=== PATIENT | male | born 1985 | race Caucasian/White ===

== ENCOUNTER 2017-04-30 11:37 | Inpatient (IN) | payer BC ==
[~2017-04-30] VITALS: Ht 180.3 cm; Wt 106.7 kg
--- NOTE | 2017-04-30 11:59 | PD ---
HPI Chief Complaint: suicidal ideation Time Seen by Provider: 11:53 Travel History International Travel<30 days: No Contact w/Intl Traveler<30days: No History of Present Illness HPI 31-year-old male brought in by law enforcement under [employer] act. Patient was placed under [employer] act by his physician Dr. Jefferson. According to the paperwork patient made statements to his primary care that he wanted to "kill himself". Patient apparently has long-standing history of depression, anxiety. His mother approximate 1 year ago. He reports progressive worsening of depression with suicidal ideation over the past year. He is makes statements to myself that he "no longer wants to live". His formalized plan is to shoot himself with a gun. According to the paperwork he also made comments that he "hears voices". He denies any medical complaints. He denies alcohol or illicit drug use. PFSH Past Medical History Narrative Medical Significant for depression, anxiety Social History Tobacco Use: No Allergies-Medications (Allergen,Severity, Reaction): Coded Allergies: No Known Allergies (Unverified , 04/30/17) Reported Meds & Prescriptions Reported Meds & Active Scripts Active Reported [Depression Med] Xanax (Alprazolam) 0.25 Mg Tab 0.25 Mg PO Q4H PRN Review of Systems Except as stated in HPI: all other systems reviewed are Neg General / Constitutional: No: Fever Eyes: No: Visual changes HENT: No: Headaches Cardiovascular: No: Chest Pain or Discomfort Respiratory: No: Shortness of Breath Gastrointestinal: No: Abdominal Pain Physical Exam Narrative GENERAL: Well-nourished, well-developed patient. SKIN: Focused skin assessment warm/dry. HEAD: Normocephalic. EYES: No scleral icterus. No injection or drainage. NECK: Supple, trachea midline. No JVD or lymphadenopathy. CARDIOVASCULAR: Regular rate and rhythm without murmurs, gallops, or rubs. RESPIRATORY: Breath sounds equal bilaterally. No accessory muscle use. GASTROINTESTINAL: Abdomen soft, non-tender, nondistended. MUSCULOSKELETAL: No cyanosis, or edema. BACK: Nontender without obvious deformity. No CVA tenderness. PSYCHIATRIC: No delusional thought processes. No hallucinations. Patient is tearful. Data Data Last Documented VS Vital Signs Date Time Temp Pulse Resp B/P Pulse Ox O2 Delivery O2 Flow Rate FiO2 04/30/17 12:02 98.6 76 19 124/76 96 Orders Complete Blood Count With Diff (04/30/17 11:59) Comprehensive Metabolic Panel (04/30/17 11:59) Psych Screen (04/30/17 11:59) Drug Screen, Random Urine (04/30/17 11:59) Labs Laboratory Tests Test 04/30/17 04/30/17 12:00 12:35 White Blood Count 8.2 TH/MM3 Red Blood Count 5.08 MIL/MM3 Hemoglobin 16.0 GM/DL Hematocrit 45.6 % Mean Corpuscular Volume 89.7 FL Mean Corpuscular Hemoglobin 31.5 PG Mean Corpuscular Hemoglobin 35.2 % Concent Red Cell Distribution Width 13.6 % Platelet Count 215 TH/MM3 Mean Platelet Volume 7.9 FL Neutrophils (%) (Auto) 72.9 % Lymphocytes (%) (Auto) 20.8 % Monocytes (%) (Auto) 5.1 % Eosinophils (%) (Auto) 0.6 % Basophils (%) (Auto) 0.6 % Neutrophils # (Auto) 6.0 TH/MM3 Lymphocytes # (Auto) 1.7 TH/MM3 Monocytes # (Auto) 0.4 TH/MM3 Eosinophils # (Auto) 0.0 TH/MM3 Basophils # (Auto) 0.0 TH/MM3 CBC Comment DIFF FINAL Differential Comment Sodium Level 139 MEQ/L Potassium Level 4.0 MEQ/L Chloride Level 104 MEQ/L Carbon Dioxide Level 29.3 MEQ/L Anion Gap 6 MEQ/L Blood Urea Nitrogen 15 MG/DL Creatinine 1.00 MG/DL Estimat Glomerular Filtration 87 ML/MIN Rate Random Glucose 117 MG/DL Calcium Level 9.2 MG/DL Total Bilirubin 0.5 MG/DL Aspartate Amino Transf 33 U/L (AST/SGOT) Alanine Aminotransferase 75 U/L (ALT/SGPT) Alkaline Phosphatase 64 U/L Total Protein 8.0 GM/DL Albumin 3.7 GM/DL Urine Opiates Screen NEG Urine Barbiturates Screen NEG Urine Amphetamines Screen NEG Urine Benzodiazepines Screen NEG Urine Cocaine Screen NEG Urine Cannabinoids Screen NEG MDM Medical Decision Making Medical Screen Exam Complete: Yes Emergency Medical Condition: Yes Differential Diagnosis Suicidal ideation, depression, anxiety Narrative Course 31-year-old male here under [employer] act for suicidal ideation. Patient has history of depression and anxiety. CBC unremarkable BMP unremarkable Tox screen negative Patient is medically cleared and pending psychiatric evaluation. Diagnosis Primary Impression: Suicidal ideation Scarlet Hanna Apr 30, 2017 11:59
[2017-04-30 12:02] VITALS: BP 124/76; PULSE 76; RESP 19; TEMP 98.6; O2SAT 96
[2017-04-30] MEDS ORDERED: ALPR.25 PO (12:15)
[2017-04-30] MEDS ORDERED: DEPRESSION MED (12:15)
[2017-04-30 12:46] LABS: BASOPHIL % 0.6 % (0.0-2.0); EOSINOPHIL % 0.6 % (0.0-4.0); HEMATOCRIT 45.6 % (39.0-51.0); HEMO FLAGS DIFF FINAL; LYMPH % 20.8 % (9.0-44.0); LYMPHOCYTE # 1.7 TH/MM3 (1.0-4.8); MEAN CELL VOLUME 89.7 FL (80.0-100.0); MEAN CORPUSCULAR HEMOGLOBIN 31.5 PG (27.0-34.0); MEAN CORPUSCULAR HGB CONC 35.2 % (32.0-36.0); MONO % 5.1 % (0.0-8.0); NEUT % 72.9 % (16.0-70.0); PLATELET COUNT 215 TH/MM3 (150-450); RED BLOOD COUNT 5.08 MIL/MM3 (4.50-5.90); RED CELL DISTRIBUTION WIDTH 13.6 % (11.6-17.2); WHITE BLOOD COUNT 8.2 TH/MM3 (4.0-11.0)
[2017-04-30 13:03] LABS: ANION GAP 6 MEQ/L (5-15); AST (GOT) 33 U/L (15-37); BICARBONATE 29.3 MEQ/L (21.0-32.0); BLOOD UREA NITROGEN 15 MG/DL (7-18); CHLORIDE 104 MEQ/L (98-107); GLOMERULAR FILTRATION RATE 87 ML/MIN (>89); SODIUM (NA) 139 MEQ/L (136-145)
[2017-04-30 13:07] LABS: ALKALINE PHOSPHATASE 64 U/L (45-117); ALT (GPT) 75 U/L (12-78); TOTAL BILIRUBIN ADULT 0.5 MG/DL (0.2-1.0)
[2017-04-30 13:07] LABS: AMPHETAMINE, URINE NEG (NEG); BARBITURATES, URINE NEG (NEG)
[2017-04-30 13:08] LABS: COCAINE, URINE NEG (NEG)
[2017-04-30 14:26] VITALS: BP 124/80; PULSE 68; RESP 18; O2SAT 99
[2017-04-30] MEDS ORDERED: ARIP1TAB5 PO (16:59)
[2017-04-30] MEDS ORDERED: BUPR100CR PO (17:03)
[2017-04-30] MEDS ORDERED: OXYC1TAB35 PO (17:07)
[2017-04-30 23:09] VITALS: BP 122/74; PULSE 60; RESP 18
[2017-05-01 02:23] VITALS: BP 131/68; PULSE 77; RESP 17; O2SAT 98
[2017-05-01 06:36] VITALS: BP 116/68; PULSE 63; RESP 19
[2017-05-01 10:39] VITALS: BP 119/71; PULSE 79; RESP 18; O2SAT 98
[2017-05-01] MEDS ORDERED: LORazepam 0.5 MG TAB PO PRN (10:45)
[2017-05-01] MEDS ORDERED: LORazepam 2 MG/ML VIAL IM PRN ×2 (10:45)
[2017-05-01] MEDS ORDERED: traZODone HCL 50 MG TAB PO PRN (10:45)
[2017-05-01] MEDS ORDERED: ALUMINUM/MAGNESIUM/SIMETH 30 ML CUP PO PRN ×2 (10:45→15:00)
[2017-05-01] MEDS ORDERED: ACETAMINOPHEN 325 MG TAB PO PRN ×2 (10:45→15:00)
[2017-05-01] MEDS ORDERED: MAGNESIUM HYDROXIDE SUSP 30 ML CUP PO PRN ×2 (10:45→14:00)
[2017-05-01] MEDS ORDERED: LORazepam 1 MG TAB PO PRN (10:45)
--- NOTE | 2017-05-01 10:50 | HHI.HP ---
Provisional Diagnosis Admission Date [place] I. Major Depression, severe, with psychotic features. Certification of Person's Competence To Provide Express and Informed Consent I have personally examined Stevo Dang , a person being served at [facility] on, May 01, 2017 10:36. Express and informed consent means consent voluntarily given in writing, by a competent person, after sufficient explanation and disclosure of the subject matter involved to enable the person to make a knowing and willful decision without any element of force, fraud, deceit, duress, or other form of constraint or coercion. This person is 18 years of age or older, is not now known to be incompetent to consent to treatment with a guardian advocate, and does not have a health care surrogate or proxy currently making medical treatment decisions. I have found this person to be one of the following: [x] Competent to provide express and informed consent, as defined above, for voluntary admission to this facility and is competent to provide express and informed consent for treatment. He/she has the consistent capacity to make well reasoned, willful, and knowing decisions concerning his or her medical or mental health treatment. The person fully and consistently understands the purpose of the admission for examination/placement and is fully capable of personally exercising all rights assured [place] Incompetent to provide express and informed consent to voluntary admission, and this is incompetent to provide express and informed consent to treatment. The person must be transferred to involuntary status and a petition for a guardian advocate filed with the Circuit Court. [] Refusing to provide express and informed consent to voluntary admission but is competent to provide express and informed consent for treatment. The person must be discharged or transferred to involuntary status. Form shall be completed within 24 hours of a person's arrival at the receiving facility and filed in the clinical record of each person: 1. Admitted on a voluntary basis 2. Permitted to provide express and informed consent to his/her own treatment 3. Allowed to transfer from involuntary to voluntary status 4. Prior to permitting a person to consent to his or her own treatment after having been previously found incompetent to consent to treatment. History of Present Illness Capacity: Has Capacity HPI This is a 31-year-old male who was brought in under a [employer] act after admitting to suicidal thoughts. The patient describes using some type of weapon , including a gun, in order to kill himself. He furthermore describes hearing voices in his head which are of a command nature, telling him to harm himself. He describes visual hallucinations which are described as seeing fire or blames. He states he has been feeling increasingly depressed over the last year. He was being treated by a psychiatrist with antidepressant medicine but states it has not been helping him. Last he went to the doctor and his medication was increased in dose, but it continues not to work. He is reporting initial and middle insomnia, sleeping approximately 4 hours per day. His appetite is diminished. He is restless and describes difficulty with concentration. He has repetitive thoughts of suicide and describes multiple episodes of tearfulness and social isolation. His appetite is markedly diminished. His mother passed approximately one year ago and he states this has made his depression worse. He has also been using oxycodone on a daily basis to treat his headaches. At this time, however, the patient's drug screen is negative. Finally, the patient denies any alcohol abuse. He is unable to verbally contract for safety at this time. Review of Systems Except as stated in HPI: all other systems reviewed are Neg Neurologic: COMPLAINS OF: Headache Past Psych History Psychological trauma history Denied Violence risk - others (6 mos) Moderate, as the patient states he is angry. Violence risk - self (6 mos) High as the patient reports auditory command hallucinations to kill himself. Substance Abuse History Drugs/Alcohol past 12 months Denies alcohol abuse but may be using OxyContin code 2 frequently. Past Family Social History Coded Allergies: No Known Allergies (Unverified , 04/30/17) Reported Medications Oxycodone-Acetaminophen 7.5-325 mg Tab1 Tab PO Q6H PRN (PAIN) Ref 0 04/30/17 Bupropion HCl ER 12 HR (Wellbutrin SR 12 HR)100 Mg [id number] Mg PO Q12HR Ref 0 04/30/17 Aripiprazole (Abilify)10 Mg Tab10 Mg PO DAILY #30 TAB Ref 0 04/30/17 [Depression Med] No Conflict Check 04/30/17 Alprazolam (Xanax)0.25 Mg Tab0.25 Mg PO Q4H PRN (ANXIETY) Ref 0 04/30/17 Family History Positive for mood disorder. Social History Patient lives with his . He does have some difficulty with speaking fluent Slovenian. He has been treated by Dr. David on an outpatient basis for psychiatric purposes. He has a high school education and is intermittently employed. Patient's Strengths (min. 2) Verbal and has access to healthcare. Physical Exam GENERAL: SKIN: Warm and dry. HEAD: Normocephalic. EYES: No scleral icterus. No injection or drainage. NECK: Supple, trachea midline. No JVD or lymphadenopathy. CARDIOVASCULAR: Regular rate and rhythm without murmurs, gallops, or rubs. RESPIRATORY: Breath sounds equal bilaterally. No accessory muscle use. GASTROINTESTINAL: Abdomen soft, non-tender, nondistended. MUSCULOSKELETAL: No cyanosis, or edema. BACK: Nontender without obvious deformity. No CVA tenderness. Vital Signs Vital Signs Date Time Temp Pulse Resp B/P Pulse Ox O2 Delivery O2 Flow Rate FiO2 05/01/17 06:36 63 19 116/68 Room Air 05/01/17 02:23 98 04/30/17 12:02 98.6 Mental Status Examination Speech: Unremarkable Orientation: x3 Memory: Unremarkable Thought Process: Organized, Goal Directed Thought Content: Bizarre thinking Hallucination Type: Auditory, Visual Attention and Concentration: Easily Distracted Suicidal Ideation: Yes Previous Suicide Attempts: Yes Homicidal Ideation: No Previous Homicide Attempts: No Insight: Fair Judgment: Unrealistic Affect: Sad Affect if Inappropriate: Blunt Mood: Sad Motor Activity: Normal gait Assessment & Plan Problem List: (1) Severe major depression, single episode, with psychotic features ICD Code: F32.3 Assessment & Plan Estimated LOS: days this is a 31-year-old male with a one-year history of increasing symptoms of depression, including markedly depressed mood, suicidal ideation with plan, auditory hallucinations of a command nature telling him to harm himself, diminished appetite, social withdrawal, obviously diminished energy, poor concentration, insomnia, decreased self-esteem, and a lethal plan to harm himself. The patient is obviously at high risk for self-harm. His antidepressant medication has not been helpful. He requires admission for evaluation and treatment. This physician is obtaining laboratory values in the form of a CBC and comprehensive metabolic profile to ensure the patient has no infectious process or metabolic process which may be contributing to or causing his depression. Likewise, his thyroid-stimulating hormone will be checked to ensure he is not hypothyroid or hyperthyroid, causing depression and hallucinations. We will assess his vitamin B-12 and vitamin D levels to determine if they are contributing to his depression. We will obtain an EKG to ensure the patient does not have a cardiac conduction problem which might be aggravated by antidepressant or mood stabilizing medication. This physician spoke to the patient's nurse regarding his current state of affairs and will ask the financial advisor trainee to obtain more information from the patients family. The patient will be placed on close observation for now. It is anticipated he will be in the hospital for 5-7 days. Riaz Barksdale MD May 01, 2017 10:50
[2017-05-01 11:20] VITALS: BP 123/68; PULSE 68; RESP 20; TEMP 98.4; O2SAT 98
--- NOTE | 2017-05-01 15:04 | PD.PSY.CON ---
Provisional Diagnosis Admission Date May 01, 2017 at 10:35 [place] I. Major Depression, severe, with psychotic features. [place] II. Deferred [place] III. Asthma History of Present Illness Service Psychiatry Consult Requested By Reason for Consult Second opinion Primary Care Physician Non-Staff HPI This is a 31-year-old male who was brought in under a [employer] act after admitting to suicidal thoughts. The patient describes using some type of weapon , including a gun, in order to kill himself. He furthermore describes hearing voices in his head which are of a command nature, telling him to harm himself. He describes visual hallucinations which are described as seeing fire or blames. He states he has been feeling increasingly depressed over the last year. He was being treated by a psychiatrist with antidepressant medicine but states it has not been helping him. Last he went to the doctor and his medication was increased in dose, but it continues not to work. He is reporting initial and middle insomnia, sleeping approximately 4 hours per day. His appetite is diminished. He is restless and describes difficulty with concentration. He has repetitive thoughts of suicide and describes multiple episodes of tearfulness and social isolation. His appetite is markedly diminished. His mother passed approximately one year ago and he states this has made his depression worse. He has also been using oxycodone on a daily basis to treat his headaches. At this time, however, the patient's drug screen is negative. Finally, the patient denies any alcohol abuse. He is unable to verbally contract for safety at this time. The patient is a 32-year-old [place] man, employed, domicile with his in [place], father of 3 kids, with psychiatric history of depression, no psychiatric hospitalizations, establish outpatient care in [place], was born on the [employer] act due to suicidal thoughts. On psychiatric evaluation today for second opinion, patient reports depression, frustration for the last weeks, he says that he has been very sad for the last year since his mother , but in the last 2 weeks he has been feeling increasingly depressed, with low energy, decreased sensitivity to rejection, frequent mood swings, irritability, and suicidal thoughts and even ideation, but with no no plan. Review of Systems Constitutional: DENIES: Diaphoretic episodes, Fatigue, Fever, Weight gain, Weight loss, Chills, Dizziness, Change in appetite, Night Sweats Endocrine: DENIES: Heat/cold intolerance, Polydipsia, Polyuria, Polyphagia Eyes: DENIES: Blurred vision, Diplopia, Eye inflammation, Eye pain, Vision loss , Photosensitivity, Double Vision Ears, nose, mouth, throat: DENIES: Tinnitus, Hearing loss, Vertigo, Nasal discharge, Oral lesions, Throat pain, Hoarseness, Ear Pain, Running Nose, Epistaxis, Sinus Pain, Toothache, Odynophagia Respiratory: DENIES: Apneas, Cough, Snoring, Wheezing, Hemoptysis, Sputum production, Shortness of breath Cardiovascular: DENIES: Chest pain, Palpitations, Syncope, Dyspnea on Exertion , PND, Lower Extremity Edema, Orthopnea, Claudication Genitourinary: DENIES: Sexual dysfunction, Urinary frequency, Urinary incontinence, Urgency, Hematuria, Dysuria, Nocturia, Penile Discharge, Testicular Pain, Testicular Swelling Musculoskeletal: DENIES: Joint pain, Muscle aches, Stiffness, Joint Swelling, Back pain, Neck pain Integumentary: DENIES: Abnormal pigmentation, Nail changes, Pruritus, Rash Hematologic/lymphatic: DENIES: Bruising, Lymphadenopathy Immunologic/allergic: DENIES: Eczema, Urticaria Neurologic: DENIES: Abnormal gait, Headache, Localized weakness, Paresthesias, Seizures, Speech Problems, Tremor, Poor Balance Psychiatric: DENIES: Anxiety, Confusion, Mood changes, Depression, Hallucinations, Agitation, Suicidal Ideation, Homicidal Ideation, Delusions Past Family Social History Coded Allergies: No Known Allergies (Unverified , 04/30/17) Reported Medications Oxycodone-Acetaminophen 7.5-325 mg Tab1 Tab PO Q6H PRN (PAIN) Ref 0 04/30/17 Bupropion HCl ER 12 HR (Wellbutrin SR 12 HR)100 Mg [id number] Mg PO Q12HR Ref 0 04/30/17 Aripiprazole (Abilify)10 Mg Tab10 Mg PO DAILY #30 TAB Ref 0 04/30/17 [Depression Med] No Conflict Check 04/30/17 Alprazolam (Xanax)0.25 Mg Tab0.25 Mg PO Q4H PRN (ANXIETY) Ref 0 04/30/17 Current Medications Medications (Trade) Dose Ordered Sig/[place] Route Start Time Stop Time Status Last Admin (Ativan) 0.5 mg Q12H PRN PO 05/01/17 10:45 (Habitrol 21 Mg Patch.24 Hr) 1 patch DAILY T-DERMAL 05/02/17 09:00 Miscellaneous Information 1 HS T-DERMAL 05/02/17 21:00 (Tylenol) 650 mg Q4H PRN PO 05/01/17 15:00 (Milk Of Magnesia Liq) 30 ml DAILY PRN PO 05/01/17 14:00 (Mag-Al Plus Susp Liq) 30 ml Q6H PRN PO 05/01/17 15:00 (Wellbutrin Sr 12 Hr) 100 mg Q12HR PO 05/01/17 21:00 (Elavil) 25 mg HS PO 05/01/17 21:00 Family History No family psychiatric history l Social History Patient was born and raised in the [place], his [place] descending, employed , , father of 3 kids, domicile in [place], highest level of education is high schoo Patient's Strengths (min. 2) Verbal and has access to healthcare. Physical Exam Vital Signs Vital Signs Date Time Temp Pulse Resp B/P Pulse Ox O2 Delivery O2 Flow Rate FiO2 05/01/17 10:39 79 18 119/71 98 Room Air 04/30/17 12:02 98.6 Mental Status Examination Appearance man, age appearing, good hygiene, calm and cooperative Speech: Unremarkable Orientation: x3 Memory: Unremarkable Thought Process: Organized, Goal Directed Thought Content: Bizarre thinking Hallucination Type: Auditory, Visual Attention and Concentration: Easily Distracted Suicidal Ideation: Yes Previous Suicide Attempts: Yes Homicidal Ideation: No Previous Homicide Attempts: No Insight: Fair Judgment: Unrealistic Affect: Sad Affect if Inappropriate: Blunt Mood: Sad Motor Activity: Normal gait Assessment & Plan Problem List: (1) Severe major depression, single episode, with psychotic features Assessment & Plan: Patient was seen and examined by me, her condition was reviewed, I completely concur and agree with Dr. Barksdale's assessment and plan. Consult appreciated. ICD Code: F32.3 Assessment & Plan Estimated LOS: Roscoe Cm MD May 01, 2017 15:04
[2017-05-01] MEDS: buPROPion HCL 100 MG SUSTAINED RELEASE TAB PO SCH (20:56)
[2017-05-01] MEDS ORDERED: AMITRIPTYLINE HCL 25 MG TAB PO SCH (21:00)
[2017-05-02 05:24] VITALS: BP 113/55; PULSE 85; RESP 18; TEMP 97.9; O2SAT 98
[2017-05-02] MEDS: buPROPion HCL 100 MG SUSTAINED RELEASE TAB PO SCH (08:42)
[2017-05-02] MEDS: NICOTINE 21 MG/24 HR PATCH T-DERMAL SCH (08:43)
--- NOTE | 2017-05-02 10:45 | HHI.PYPN ---
Subjective Remarks Patient was seen today for psychiatric reevaluation, patient reports depression , sense of frustration, frequent mood swings. He says he has been giving some thoughts in the unit to his situation and his future and he has concluded he does not want to , but he can not stop thinking about committing suicide. He says his already lack up his pistol and changed the combination. He also has been hearing voices making derogatory comments, but not commanding type. He reports better sleep since arrive int he unit. He has been mostly isolated and participating poorly in activities, but compliant with medications and not problems so far. Review of Systems Other No somatic complains Objective Alert: Yes [place]: Person, Place, Date, Situation Mood: Depressed Affect: Blunted, Other (dysthimic) Memory Intact: Immediate, Recent, Remote Hallucinations: Auditory Delusions: No Delusion Type: Other (no elicited) Suicidal: Ideation (No SI) Homicidal: Ideation (No HI) Insight/Judgment poor Vitals/IOs Vital Signs Date Time Temp Pulse Resp B/P Pulse Ox O2 Delivery O2 Flow Rate FiO2 05/02/17 05:24 97.9 85 18 113/55 98 05/01/17 10:39 Room Air Assessment & Plan Problem List: (1) Severe major depression, single episode, with psychotic features Assessment & Plan: Will increased Bupropion to 150 mg bid for depression and will add Abilify 10 mg for psychosis. Brief supportive psychotherapy provided. ICD Code: F32.3 Assessment & Plan Estimated LOS: days Justification for Cont. Inpt. Patient is significantly depressed and also shows psychotic symptoms with SI, he needs to continue psychiatric hospitalization for stabilization for safety. Roscoe Soliz MD May 02, 2017 10:44
[2017-05-02] MEDS: ARIPiprazole 10 MG TAB PO SCH (10:59)
[2017-05-02 11:07] LABS: AUTOMATED NEUTROPHIL # 6.8 TH/MM3 (1.8-7.7); BASOPHIL % 0.4 % (0.0-2.0); EOSINOPHIL # 0.1 TH/MM3 (0-0.4); EOSINOPHIL % 0.7 % (0.0-4.0); HEMATOCRIT 49.7 % (39.0-51.0); HEMO FLAGS DIFF FINAL; LYMPH % 20.8 % (9.0-44.0); MEAN CORPUSCULAR HEMOGLOBIN 31.7 PG (27.0-34.0); MEAN CORPUSCULAR HGB CONC 35.2 % (32.0-36.0); MONO % 6.6 % (0.0-8.0); NEUT % 71.5 % (16.0-70.0); PLATELET COUNT 219 TH/MM3 (150-450); RED BLOOD COUNT 5.52 MIL/MM3 (4.50-5.90); WHITE BLOOD COUNT 9.5 TH/MM3 (4.0-11.0)
[2017-05-02 11:12] LABS: ANION GAP 11 MEQ/L (5-15); AST (GOT) 43 U/L (15-37); BICARBONATE 29.5 MEQ/L (21.0-32.0); BLOOD UREA NITROGEN 16 MG/DL (7-18); CHLORIDE 97 MEQ/L (98-107); GLOMERULAR FILTRATION RATE 81 ML/MIN (>89); POTASSIUM 3.5 MEQ/L (3.5-5.1); SODIUM (NA) 137 MEQ/L (136-145)
[2017-05-02 11:14] LABS: ALT (GPT) 89 U/L (12-78)
[2017-05-02 11:23] LABS: ALKALINE PHOSPHATASE 74 U/L (45-117); HDL CHOLESTEROL 46.8 MG/DL (40.0-60.0); LDL CHOLESTEROL 60 MG/DL (0-99); TOTAL BILIRUBIN ADULT 0.9 MG/DL (0.2-1.0)
[2017-05-02 11:36] LABS: HEMOGLOBIN A1a 0.7 %; HEMOGLOBIN A1b 1.4 %; HEMOGLOBIN Ao 87.5 %; HEMOGLOBIN LA1C 1.7 %; HEMOGLOBIN P3 3.2 %
[2017-05-02 17:53] VITALS: BP 139/75; PULSE 72; RESP 18; TEMP 98.5; O2SAT 99
[2017-05-02] MEDS ORDERED: REMOVE OLD NICODERM (NICOTINE) PATCH T-DERMAL SCH (21:00)
[2017-05-02] MEDS ORDERED: QUEtiapine FUMARATE 25 MG TAB PO SCH (21:00)
[2017-05-02] MEDS: buPROPion HCL 150 MG SUSTAINED RELEASE TAB PO SCH (21:25)
[2017-05-03 04:50] VITALS: BP 119/62; PULSE 70; RESP 16; TEMP 98; O2SAT 98
[2017-05-03] MEDS: ARIPiprazole 10 MG TAB PO SCH (08:20)
[2017-05-03] MEDS: buPROPion HCL 150 MG SUSTAINED RELEASE TAB PO SCH (08:21)
[2017-05-03] MEDS: NICOTINE 21 MG/24 HR PATCH T-DERMAL SCH (08:22)
[2017-05-03] MEDS ORDERED: ARIP1TAB12 PO (08:22)
[2017-05-03] MEDS ORDERED: BUPR150CR PO (08:22)
--- NOTE | 2017-05-03 08:25 | HHI.DS ---
Psychiatry Discharge Summary Inpatient Psychiatric care?: Yes Advance Directive: Yes Mental Health AdvanceDirective: No Health Care Proxy: Yes Admission Admission Date May 01, 2017 at 10:35 Admission Diagnosis: (1) Severe major depression, single episode, with psychotic features ICD Code: F32.3 Brief History This is a 31-year-old male who was brought in under a [place] act after admitting to suicidal thoughts. The patient describes using some type of weapon , including a gun, in order to kill himself. He furthermore describes hearing voices in his head which are of a command nature, telling him to harm himself. He describes visual hallucinations which are described as seeing fire or blames. He states he has been feeling increasingly depressed over the last year. He was being treated by a psychiatrist with antidepressant medicine but states it has not been helping him. Last he went to the doctor and his medication was increased in dose, but it continues not to work. He is reporting initial and middle insomnia, sleeping approximately 4 hours per day. His appetite is diminished. He is restless and describes difficulty with concentration. He has repetitive thoughts of suicide and describes multiple episodes of tearfulness and social isolation. His appetite is markedly diminished. His mother passed approximately one year ago and he states this has made his depression worse. He has also been using oxycodone on a daily basis to treat his headaches. At this time, however, the patient's drug screen is negative. Finally, the patient denies any alcohol abuse. He is unable to verbally contract for safety at this time. The patient is a 32-year-old [place] man, employed, domicile with his in [place], father of 3 kids, with psychiatric history of depression, no psychiatric hospitalizations, establish outpatient care in [place], was born on the [place] act due to suicidal thoughts. On psychiatric evaluation today for second opinion, patient reports depression, frustration for the last weeks, he says that he has been very sad for the last year since his mother , but in the last 2 weeks he has been feeling increasingly depressed, with low energy, decreased sensitivity to rejection, frequent mood swings, irritability, and suicidal thoughts and even ideation, but with no no plan. Tobacco Use In Past 30 Days: No Tobacco Past 30 Days Alcohol Use: Never Hospital Course Patient was admitted in the 2600 unit transfer from [facility] voluntarily due to increased depression and suicidal thoughts. Immediate psychiatric and psychosocial assessment were done. Appropriate safety measure were taken. She was restarted in his outpatient psychotropics, Wellbutrin 100 mg twice a day and Abilify 5 mg. At the beginning of the hospitalization patient was endorsing low level of energy, increased suicidal thoughts, 3 sensitivity to rejection and frustration, overwhelmed, and decreased sleep. He was also endorsing auditory hallucinations of voices making derogatory comments about him. But since the beginning patient denied suicidal intentions or plan. His medications were titrated up as patient could tolerate and was needed. He showed a positive response to medication titration, to individual group psychotherapy and also to the structure environment. Psychiatric team met with his who actually relocated his gun and change the code, just for safety. As the patient became better, his felt more comfortable with the discharge. At the moment of the discharge patient seemed to be doing better. Denies suicidal and homicidal ideation, denies visual and auditory hallucinations. Results Blood Pressure 119 / 62 Vital Signs Date Time Temp Pulse Resp B/P Pulse Ox O2 Delivery O2 Flow Rate FiO2 05/03/17 04:50 98.0 70 16 119/62 98 05/01/17 10:39 Room Air Laboratory Tests Test 04/30/17 05/02/17 12:00 09:46 Neutrophils (%) (Auto) 72.9 % 71.5 % (16.0-70.0) (16.0-70.0) Estimat Glomerular Filtration 87 ML/MIN (>89) 81 ML/MIN (>89) Rate Random Glucose 117 MG/DL (74-106) 25-Hydroxy Vitamin D Total 19.4 ng/ML (30-100) Hemoglobin 17.5 GM/DL (13.0-17.0) Chloride Level 97 MEQ/L (98-107) Aspartate Amino Transf 43 U/L (15-37) (AST/SGOT) Alanine Aminotransferase 89 U/L (12-78) (ALT/SGPT) Total Protein 8.5 GM/DL (6.4-8.2) Laboratory Results Test 05/02/17 09:46 Hemoglobin A1c 4.7 % (4.3-6.0) Triglycerides Level 84 MG/DL (42-150) Cholesterol Level 124 MG/DL (120-200) LDL Cholesterol 60 MG/DL (0-99) HDL Cholesterol 46.8 MG/DL (40.0-60.0) Summary of Procedures No procedures Pending results at discharge: No Medications # of Antipsychotic meds at D/C: 1 Approp Antipsych med options 1 - Minimum of three failed multiple trials of monotherapy. 2 - Documented plan to taper to monotherapy due to previous use of multiple meds OR cross-taper in progress at D/C. 3 - Documentation of augmentation of Clozapine. 4 - Justification other than those listed in allowable values 1-3, document here : Discharge Discharge Date: May 03, 2017 Discharge Diagnosis: (1) Severe major depression, single episode, with psychotic features ICD Code: F32.3 Mental Status Exam at Disch Age-appearing [place] man, multiple visible tattoos, good hygiene, [facility], he is calm, cooperative and pleasant. His his speech is fluent and spontaneous. His mood is euthymic, affect congruent with mood. He stopped processes logical, coherent and relevant. His thought content is devoid of, HI, VH, AH. No paranoia, no delusions present. Insight, impulse control and judgment are good. His memory is intact. Pt Condition on Discharge: Stable Discharge Disposition: Discharge Home Discharge Instructions Diet Instructions: As Tolerated, No Restrictions Activities you can perform: Regular-No Restrictions Scheduled Appointment: Private Psychiatrist Appointment Date: May 11, 2017 Appointment Time: 1040 Discharge Time > 30 minutes Discharge/Advance Care Plan Health Problems: (1) Severe major depression, single episode, with psychotic features Goals to promote your health * To prevent worsening of your condition and complications * To maintain your health at the optimal level Directions to meet your goals Take your medications as prescribed Follow your dietary instruction Follow activity as directed Keep your appointments as scheduled Take your immunizations and boosters as scheduled If your symptoms worsen call your PCP, if no PCP go to Urgent Care Center or Emergency Room For 23/04 questions related to your inpatient stay or results of tests pending at discharge, please contact Dr. Roscoe Soliz at Smoking is Dangerous to Your Health. Avoid second hand smoking Roscoe Soliz MD May 03, 2017 08:25
== END 2017-05-03 13:43 | disposition home or self-care (01) | DRG 885 ==
LOC: NEPD 11:37 → NEDA 05-01 10:35 → H260 05-01 11:20
PROVIDERS: ADMIT Psychiatry & Neurology Psychiatry; ATTEND Psychiatry & Neurology Psychiatry
DX: F32.3 Major depressive disorder, single episode, severe with psychotic features (principal); R45.851 Suicidal ideations; G47.00 Insomnia, unspecified; Z79.899 Other long term (current) drug therapy
CPT/HCPCS: 80053; 80061; 80307; 82306; 82607; 83036; 84443; 85025